=== PATIENT | male | born 1955 | race Two or more races ===

== ENCOUNTER 2024-02-20 20:16 | Emergency (ER) | payer MEDICARE, OTHER ==
[~2024-02-20] VITALS: Ht 167.6 cm; Wt 77.1 kg
--- NOTE | 2024-02-20 21:10 | NUR ---
[id number] CC DIZZINESS N/V BEFORE GOING TO GYM THEN VOMITING AT THE GYM 4MG ZOFRAN GIVEN FUR GLOSSER BG125 ON SCENE.
--- NOTE | 2024-02-20 21:25 | NUR ---
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
[2024-02-20 21:32] LABS: BASOPHILS # (AUTO) 0.1 K/uL (0.0-0.2); BASOPHILS % (AUTO) 0.8 % (0.0-2.0); EOSINOPHILS # (AUTO) 0.1 K/uL (0.0-0.7); EOSINOPHILS % (AUTO) 1.4 % (0.0-6.0); HEMATOCRIT 43 % (39-51); HEMOGLOBIN 15.3 g/dL (13.5-17.5); LYMPHOCYTES % (AUTO) 19.5 % (20.0-44.0); MEAN CORPUSCULAR HEMOGLOBIN 31 PG (26.0-33.0); MEAN CORPUSCULAR HGB CONC 35 g/dl (31.0-36.0); MEAN CORPUSCULAR VOLUME 88 fL (80-96); MONOCYTES # (AUTO) 0.6 K/uL (0.1-1.30); MONOCYTES % (AUTO) 5.9 % (2.0-12.0); NEUTROPHILS # (AUTO) 7.6 K/uL (1.8-8.9); NEUTROPHILS % (AUTO) 72.4 % (43.0-81.0); PLATELET COUNT (AUTO) 167 K/uL (150-450); RED BLOOD CELL COUNT(AUTO) 4.92 MIL/uL (4.5-6.0); RED CELL DISTRIBUTION WIDTH 14.2 % (11.5-15.0); WHITE BLOOD COUNT (AUTO) 10.4 K/uL (4.3-11.0)
[2024-02-20 21:48] LABS: INR 0.97 (0.91-1.10); PROTHROMBIN TIME 10.3 SECS (9.2-11.1)
[2024-02-20 21:53] LABS: ALANINE AMINOTRANSFERASE 43 U/L (12-78); ALBUMIN 3.7 g/dL (3.4-5.0); ALKALINE PHOSPHATASE 70 U/L (46-116); ASPARTATE AMINOTRANSFERASE 34 U/L (15-37); BILIRUBIN,DIRECT 0.1 mg/dL (0.0-0.2); BILIRUBIN,TOTAL 0.5 mg/dL (0.2-1.0); CARBON DIOXIDE 25 mmol/L (21-32); CHLORIDE 106 mmol/L (98-107); CREATININE 1.1 mg/dL (0.6-1.3); GLUCOSE 167 mg/dL (74-106); LIPASE 46 U/L (16-77); POTASSIUM 4.1 mmol/L (3.5-5.1); SODIUM SERUM 142 mmol/L (136-145); TOTAL PROTEIN, SERUM 6.9 g/dL (6.4-8.2); UREA NITROGEN, BLOOD 18 mg/dL (7-18)
[2024-02-20] MEDS ORDERED: CLONIDINE HCL 0.1 MG TABLET ONE (23:02)
[2024-02-20] MEDS: CLONIDINE HCL 0.1 MG TABLET PO ONE (23:08)
--- NOTE | 2024-02-20 23:10 | NUR ---
URINE SAMPLE SENT TO LAB
--- NOTE | 2024-02-20 23:39 | NUR ---
PATIENT REFUSED BLOOD WORKS MADE AWARE
[2024-02-21 00:16] LABS: APPEARANCE,URINE CLEAR (CLEAR); BILIRUBIN,URINE NEGATIVE (NEGATIVE); BLOOD, URINE TRACE-INTA Ery/uL (NEGATIVE); COLOR,URINE YELLOW (YELLOW); KETONES,URINE TRACE mg/dL (NEGATIVE); LEUKOCYTE ESTERASE ,URINE NEGATIVE (NEGATIVE); NITRITE, URINE NEGATIVE (NEGATIVE); PROTEIN,URINE TRACE mg/dl (NEGATIVE); UGLUCOSE NEGATIVE (NEGATIVE); UROBILINOGEN,URINE 0.2 EU/dL (0.2)
[2024-02-21 00:18] LABS: ADD URINE CULTURE NO; BACTERIA,URINE Rare /HPF (None Seen); SQUAMOUS EPITHELIAL CELL,UR Few /HPF (None Seen); WBC,URINE 0-2 /HPF (0-3)
[2024-02-21 00:18] LABS: CALCIUM, SERUM 9.2 mg/dL (8.5-10.1); CARBON DIOXIDE 27 mmol/L (21-32); CHLORIDE 106 mmol/L (98-107); CREATININE 1.1 mg/dL (0.6-1.3); GLUCOSE 150 mg/dL (74-106); SODIUM SERUM 141 mmol/L (136-145); UREA NITROGEN, BLOOD 17 mg/dL (7-18)
--- NOTE | 2024-02-21 00:24 | NUR ---
LACTIC 2.2
[2024-02-21 00:25] LABS: LACTIC ACID 2.2 mmol/L (0.4-2.0)
[2024-02-21 00:30] LABS: ALANINE AMINOTRANSFERASE 36 U/L (12-78); ALBUMIN 3.8 g/dL (3.4-5.0); ALKALINE PHOSPHATASE 64 U/L (46-116); ASPARTATE AMINOTRANSFERASE 30 U/L (15-37); BILIRUBIN,TOTAL 0.4 mg/dL (0.2-1.0); LIPASE 42 U/L (16-77); NT-PRO BNP 29 pg/mL (0-125)
[2024-02-21] MEDS: IV NS 0.9% 1,000 ML IV ONE (00:40)
--- NOTE | 2024-02-21 03:40 | NUR ---
Patient discharged to home in stable condition. Written and verbal after care instructions given. Patient verbalizes understanding of instruction.
--- NOTE | 2024-02-21 03:47 | NUR ---
Caryl cochran in [facility] - 02/21/24 at 0348 by [email or web address] urine specimen sent to lab
[2024-02-21 05:59] VITALS: BP 115/80; TEMP 98.8; O2SAT 96
== END 2024-02-21 05:59 | disposition home or self-care (01) ==
LOC: ER 20:17 → EDBD 20:17 → ER 02-21 05:59
DX: R42 Dizziness and giddiness (principal); R11.2 Nausea with vomiting, unspecified; Z85.850 Personal history of malignant neoplasm of thyroid; Z60.2 Problems related to living alone
CPT/HCPCS: 99285; 70450; 71045; 93005 ×2; 74176; 85025; 83605 ×2; 83690 ×2; 81001; 36415 ×2; 84443; 80053; 84484 ×2; 85730; 83880; 96360; 87040; 80048; 80076; J7030